=== PATIENT | female | born 1975 | race American Indian/Alaskan Native ===

== ENCOUNTER 2019-04-26 09:04 | Emergency (ER) | payer SELFPAY ==
[2019-04-26 09:08] VITALS: BP 138/94
[2019-04-26 10:15] LABS: Bilirubin,Urine NEG (Negative); Blood,Urine NEG (Negative); Color,Urine Yellow (Yellow); Mucus,Urine 3+ /HPF; Protein,Urine <15 mg/dL mg/dL (Negative); WBC,Urine < 1.0 /HPF (0.0-6.0)
[2019-04-26 10:36] LABS: HCG Qualitative,Urine Negative (Negative)
== END 2019-04-26 10:00 | disposition left against medical advice (07) ==
LOC: ED 09:04
DX: R30.9 Painful micturition, unspecified (principal); Z53.21 Procedure and treatment not carried out due to patient leaving prior to being seen by health care provider
CPT/HCPCS: 81001; 81025